=== PATIENT | female | born 1970 | race Caucasian/White ===

== ENCOUNTER 2018-02-16 13:56 | Emergency (ER) | payer OTHER ==
[~2018-02-16] VITALS: Ht 157.5 cm; Wt 72.6 kg
[~2018-02-16 13:56] MED LIST: ANTIVERT12.5 MG PO; DOLOGESIC CAPLE1 TAB PO; LEVSIN; PEPCID; PROTONIX40 MG; RELAGESIC TABLE1 TAB PO; ZANTAC 2525 MG
== END 2018-02-16 16:57 | disposition home or self-care (01) ==
LOC: ER 13:56
DX: R00.2 Palpitations (principal); F06.4 Anxiety disorder due to known physiological condition

== ENCOUNTER 2019-06-28 08:51 | Emergency (ER) | payer OTHER ==
[~2019-06-28] VITALS: Ht 157.5 cm; Wt 74.4 kg
[2019-06-28] MEDS ORDERED: TOPROL XL25 M1 (08:58)
[2019-06-28] MEDS ORDERED: AVAPRO150 MG (08:58)
[2019-06-28] MEDS ORDERED: LEXAPRO5 MG (08:59)
[2019-06-28] MEDS ORDERED: CLONAZEPAM0.5 M1 (08:59)
== END 2019-06-28 13:01 | disposition home or self-care (01) ==
LOC: ER 08:51
DX: G43.909 Migraine, unspecified, not intractable, without status migrainosus (principal)